=== PATIENT | male | born 1965 | race Two or more races ===

== ENCOUNTER → 2024-05-15 | Outpatient (CLI) | payer MEDICAID, SELFPAY ==
--- NOTE | 2024-05-15 09:40 | XR_ITS ---
Examination: Abdomen 2 views TECHNIQUE: AP upright AP supine abdomen 2 views Exam date and time: May 15, 2024 1025 hours INDICATIONS: Abdominal pain and constipation beginning 2 weeks ago. FINDINGS: Mild to moderate stool throughout the colon No obstruction No free air Intact osseous structures with mild to moderate bilateral hip osteoarthritis IMPRESSION: Nonobstructive bowel gas pattern
== END | disposition home or self-care (01) ==
LOC: CDIM 09:02
PROVIDERS: Referring Provider Nurse Practitioner Acute Care; Visit Provider Nurse Practitioner Acute Care
DX: K59.00 Constipation, unspecified (principal)
CPT/HCPCS: 74019